=== PATIENT | female | born 1955 | race Two or more races ===

== ENCOUNTER 2018-10-14 10:27 | Outpatient (CLI) | payer OTHER ==
[~2018-10-14 10:27] MED LIST: ALBUTEROL17 GM; AVELOX ABC PAC400 MG; ROBITUSSIN100 MG/51; SINGULAIR10 MG
== END 2018-10-14 15:00 | disposition home or self-care (01) ==
LOC: SONOGRAMA 10:27
DX: M25.512 Pain in left shoulder (principal)

== ENCOUNTER 2019-03-06 13:16 | Outpatient (CLI) | payer OTHER | END 2019-03-06 13:30 | disposition home or self-care (01) | LOC: OFIC 805 13:16 | DX: H91.21 Sudden idiopathic hearing loss, right ear (principal); R93.89 Abnormal findings on diagnostic imaging of other specified body structures ==

== ENCOUNTER 2020-01-29 12:50 | Outpatient (CLI) | payer OTHER | END 2020-01-29 16:28 | disposition home or self-care (01) | LOC: RAD 12:50 | PROVIDERS: ATTEND Physical Medicine & Rehabilitation | DX: M54.2 Cervicalgia (principal); M54.5 Low back pain; M47.816 Spondylosis without myelopathy or radiculopathy, lumbar region; M47.812 Spondylosis without myelopathy or radiculopathy, cervical region; M75.51 Bursitis of right shoulder ==

== ENCOUNTER 2021-11-17 09:12 | Outpatient (CLI) | payer OTHER | END 2021-11-17 09:30 | disposition home or self-care (01) | LOC: MAMO-SONO 09:12 | DX: Z12.31 Encounter for screening mammogram for malignant neoplasm of breast (principal); R92.0 Mammographic microcalcification found on diagnostic imaging of breast; N63.11 Unspecified lump in the right breast, upper outer quadrant ==